=== PATIENT | female | born 1940 | race Caucasian/White ===

== ENCOUNTER 2021-03-20 19:05 | Emergency (ER) | payer MEDICAID, MEDICARE ==
[~2021-03-20] VITALS: Ht 170.2 cm; Wt 63.5 kg
--- NOTE | 2021-03-20 19:26 | NUR ---
PT BIBPA C/O WEAKNESS AND POOR PO INTAKE X2 WEEKS. PT AAOX4 BREATHING EVENLY AND UNLABORED. PT STATES "IM NOT SURE WHY I AM HERE, NOTHING HURTS" PT DOES ENDORSE THAT SHE HAS HAD MORE TROUBLE "RECENTLY" WITH WALKING. PT IS HARD OF HEARING. PT ATTACHED TO MONITOR AND POX. PT GIVEN BLANKET AND CALLLIGHT WITHIN REACH
--- NOTE | 2021-03-20 19:34 | NUR ---
[facility] ADDRESS: [id number] [address]. CONTACT # [phone], ALEA
--- NOTE | 2021-03-20 19:50 | NUR ---
LAB AT BEDSIDE
[2021-03-20 20:04] LABS: BASOPHILS # (AUTO) 0.1 K/uL (0.0-0.2); BASOPHILS % (AUTO) 1.1 % (0.0-2.0); EOSINOPHILS % (AUTO) 3.6 % (0.0-6.0); HEMATOCRIT 40 % (33-45); LYMPHOCYTES # (AUTO) 1.5 K/uL (0.8-4.8); LYMPHOCYTES % (AUTO) 12.4 % (20.0-44.0); MEAN CORPUSCULAR HGB CONC 33 g/dl (31.0-36.0); MEAN CORPUSCULAR VOLUME 99 fL (82-100); MONOCYTES # (AUTO) 0.8 K/uL (0.1-1.30); MONOCYTES % (AUTO) 6.7 % (2.0-12.0); NEUTROPHILS # (AUTO) 9.3 K/uL (1.8-8.9); NEUTROPHILS % (AUTO) 76.2 % (43.0-81.0); PLATELET COUNT (AUTO) 387 K/uL (150-450); RED BLOOD CELL COUNT(AUTO) 4.02 MIL/uL (4.0-5.2); WHITE BLOOD COUNT (AUTO) 12.1 K/uL (4.3-11.0)
[2021-03-20 20:13] LABS: CALCIUM, SERUM 9.1 mg/dL (8.5-10.1); CARBON DIOXIDE 29 mmol/L (21-32); CHLORIDE 106 mmol/L (98-107); GLUCOSE 89 mg/dL (74-106); POTASSIUM 3.9 mmol/L (3.5-5.1); SODIUM SERUM 143 mmol/L (136-145); UREA NITROGEN, BLOOD 22 mg/dL (7-18)
[2021-03-20 20:19] LABS: ALANINE AMINOTRANSFERASE 29 U/L (12-78); ALBUMIN 3.3 g/dL (3.4-5.0); ALKALINE PHOSPHATASE 126 U/L (46-116); ASPARTATE AMINOTRANSFERASE 23 U/L (15-37); BILIRUBIN,DIRECT 0.1 mg/dL (0.0-0.2); BILIRUBIN,TOTAL 0.4 mg/dL (0.2-1.0); TOTAL PROTEIN, SERUM 7.5 g/dL (6.4-8.2)
--- NOTE | 2021-03-20 20:26 | NUR ---
URINE SENT TO LAB
[2021-03-20 20:38] LABS: BILIRUBIN,URINE Negative (NEGATIVE); COLOR,URINE YELLOW (YELLOW); LEUKOCYTE ESTERASE ,URINE Small (NEGATIVE); NITRITE, URINE Positive (NEGATIVE); PH,URINE 5.5 (5.0-8.0); PROTEIN,URINE Negative (NEGATIVE); UGLUCOSE Negative (NEGATIVE)
[2021-03-20 20:43] LABS: RBC,URINE NONE SEEN /HPF (0-2); WBC,URINE 2 /HPF (0-3)
[2021-03-20 20:44] LABS: BACTERIA,URINE 11 /HPF (None Seen); SQUAMOUS EPITHELIAL CELL,UR Few /HPF (None Seen)
[2021-03-20 21:03] LABS: THYROID STIMULATING HORMONE 94.702 uIU/mL (0.358-3.74)
--- NOTE | 2021-03-20 21:06 | NUR ---
CALLED [facility] AND SPOKE TO JACKSON RE PT'S DISCHARGE
--- NOTE | 2021-03-20 21:09 | NUR ---
ETA FOR [facility]: 1 HOUR
--- NOTE | 2021-03-20 23:01 | NUR ---
called [facility], per dispatch crew eta 5min
--- NOTE | 2021-03-20 23:15 | NUR ---
report given to [facility]
--- NOTE | 2021-03-20 23:26 | NUR ---
PATIENT LEAVING VIA AMBULANCE IN STABLE CONDITION.
[2021-03-20 23:28] VITALS: BP 132/77
== END 2021-03-20 23:28 | disposition home or self-care (01) ==
LOC: ER 19:08
DX: R63.0 Anorexia (principal); G30.9 Alzheimer's disease, unspecified; F02.80 Dementia in other diseases classified elsewhere, unspecified severity, without behavioral disturbance, psychotic disturbance, mood disturbance, and anxiety; I10 Essential (primary) hypertension; M19.90 Unspecified osteoarthritis, unspecified site; Z98.890 Other specified postprocedural states; Z88.0 Allergy status to penicillin; Z88.1 Allergy status to other antibiotic agents; Z88.8 Allergy status to other drugs, medicaments and biological substances
CPT/HCPCS: 36415; 71045-TC; 80048-TC; 80076-TC; 81001; 83735-TC; 84443-TC; 84484-TC; 85025-TC; 87086-TC